=== PATIENT | female | born 1965 | race Caucasian/White ===

== ENCOUNTER → 2017-08-02 | Outpatient (CLI) | payer BC ==
--- NOTE | 2017-08-02 12:43 | REPMRS ---
Patient History The patient states she had a clinical breast exam in 02/02 Family history of breast cancer in paternal aunt under age 50, ovarian cancer in paternal aunt, and breast cancer in paternal cousin under age 50. Taking hormonal contraceptives for 18 years. Digital Woman Screen Mammo: August 02, 2017 - Exam #: [id number] Bilateral CC and MLO view(s) were taken. Technologist: Ayana Patel, Technologist Prior study comparison: July 23, 2016, digital woman screen mammo performed at [facility]. May 07, 2015, digital woman screen mammo performed at [facility]. FINDINGS: The breast tissue is heterogeneously dense. This may lower the sensitivity of mammography. There has been no change in the appearance of the mammogram from the prior studies. There is a moderate amount of residual fibroglandular tissue which is fairly symmetric. There is no interval development of dominant mass, areas of architectural distortion, or clustered microcalcification typical of malignancy. ASSESSMENT: BI-RADS/ACR category 1 mammogram. Negative. Recommendation Routine screening mammogram in 1 year (for women over age 40). This mammogram was interpreted with the aid of an FDA-approved computer-aided dectection system. Electronically Signed By: Gwyn Luis MD 08/02/17 [id number]
== END ==
LOC: M WHC 06:39
PROVIDERS: ATTEND Nurse Practitioner Family
DX: Z12.31 Encounter for screening mammogram for malignant neoplasm of breast (principal)

== ENCOUNTER 2018-07-17 06:32 | Day surgery (SDC) | payer BC, OTHER ==
[2018-07-17] MEDS ORDERED: LIDOCAINE 2% INJ 100 MG/5 ML SDV (FOR ANES.) As Ordered (06:58)
[2018-07-17] MEDS ORDERED: PROPOFOL 200 MG/20 ML VIAL As Ordered ×2 (07:00→08:00)
[2018-07-17] MEDS: NS 1,000 ML IV (07:10)
== END 2018-07-17 08:40 | disposition home or self-care (01) ==
LOC: M OPP 06:32
DX: Z12.11 Encounter for screening for malignant neoplasm of colon (principal); K64.8 Other hemorrhoids; I10 Essential (primary) hypertension; K21.9 Gastro-esophageal reflux disease without esophagitis; Z79.899 Other long term (current) drug therapy; Z80.3 Family history of malignant neoplasm of breast; Z80.0 Family history of malignant neoplasm of digestive organs; Z80.41 Family history of malignant neoplasm of ovary
CPT/HCPCS: G0121

== ENCOUNTER → 2020-04-02 | Outpatient (CLI) | payer BC ==
[~2020-04-02] MED LIST: DESO1TAB5 PO; FISH7.5C PO; LISI-542 PO
--- NOTE | 2020-04-02 16:11 | REP ---
BILATERAL MAMMOGRAM WITH 3D TOMOSYNTHESIS: Family history of breast cancer in paternal aunt and paternal cousin. [facility] lifetime risk of breast cancer 14.6%. Comparison mammogram 08/02/2017 as well as other prior exams. Breast parenchyma is moderately dense bilaterally limiting the sensitivity of the mammogram. There appears to be a 5 mm nodule in the upper outer quadrant of the left breast, in the mid third of the breast. I see no other evidence of mass or clustered microcalcifications. IMPRESSION: BIRADS 0: BI-RADS/ACR category 0 mammogram, Incomplete: Need additional imaging evaluation and/or prior mammograms for comparison. Suspect 5 mm nodule upper outer quadrant of the left breast. Recommend spot compression views and ultrasound to further evaluate. This mammogram was interpreted with the aid of an FDA-approved computer-aided detection system. A. Negative x-ray reports should not delay biopsy if a dominant or clinically suspicious mass is present. B. Four to eight percent of cancers are not identified by x-ray. C. Adenosis and dense breasts may obscure an underlying neoplasm. The patient states she/he had a clinical breast exam in March 2020. The patient letter being requested is M0.
== END ==
LOC: M WHC 11:01
PROVIDERS: ATTEND Nurse Practitioner Family
DX: Z12.31 Encounter for screening mammogram for malignant neoplasm of breast (principal)

== ENCOUNTER → 2020-05-21 | Outpatient (CLI) | payer BC ==
--- NOTE | 2020-06-17 14:24 | REP ---
DIAGNOSTIC MAMMOGRAM LEFT BREAST AND LEFT BREAST ULTRASOUND Multiple spot compression views of the left breast were performed and correlated with the prior mammogram of 04/02/2020. These confirm the presence of a 5-mm well-circumscribed nodule at the 3 o'clock position of the left breast. This was in the mid third of the breast. Real-time sonographic evaluation of the left breast performed in the region of 3 o'clock. There is a small simple oval cyst at the site of the mammographic abnormality. This is benign. It has a maximum diameter of 4 mm. IMPRESSION: ACR 2 benign. Spot compression views confirm the presence of a well- circumscribed nodule at the 3 o'clock position of the left breast with approximate diameter 4-5 mm. Sonographically this corresponds to a simple benign cyst measuring 4 mm in diameter. The findings are benign. Recommend follow-up mammogram in one year. Patient letter 1. MTDD
== END ==
LOC: M WHC 13:24
PROVIDERS: ATTEND Internal Medicine
DX: N60.02 Solitary cyst of left breast (principal); N63.25 Unspecified lump in the left breast, overlapping quadrants

== ENCOUNTER → 2021-03-16 | Outpatient (REF) | payer BC, OTHER ==
[~2021-03-16] MED LIST changes: -LISI-542 PO; +LISI-898 PO
[2021-03-16 14:10] LABS: FOLLICLE STIMULATING HORMONE 16.3 mIU/mL; LUTEINIZING HORMONE 1.2 mIU/mL
== END ==
LOC: M LAB REF 12:18
PROVIDERS: ATTEND Internal Medicine
DX: Z79.3 Long term (current) use of hormonal contraceptives (principal)

== ENCOUNTER → 2021-04-10 | Outpatient (REF) | LOC: M LABSMTC 09:43 | PROVIDERS: ATTEND Pediatrics | DX: Z20.828 Contact with and (suspected) exposure to other viral communicable diseases (principal); Z11.59 Encounter for screening for other viral diseases ==

== ENCOUNTER → 2021-07-01 | Outpatient (CLI) | payer BC, OTHER ==
--- NOTE | 2021-07-01 08:50 | REPMRS ---
Patient History The patient states she had a clinical breast exam in February 2021. Family history of breast cancer under age 50 in paternal aunt, breast cancer under age 50 in paternal cousin, ovarian cancer in paternal aunt. Taking hormonal contraceptives for 18 years. Tomosynthesis is performed. Volpara breast density is c. BakariNataliyamarcusdhruv lifetime risk of breast cancer 14.2%. No breast complaints today Patient signed the MRS sheet 1st vaccine 09/09/20-right arm-Pfizer 2nd vaccine 09/30/20-left arm 3rd vaccine 06/16/21-left arm Priors on PACS Patient Identification Verified Patient denied Digital Woman Screen Mammo: July 01, 2021 - Exam #: [id number] Bilateral CC and MLO view(s) were taken. Technologist: Latoya Kuhn, Technologist Prior study comparison: May 21, 2020, left breast diagnostic unilateral mammo performed at [facility]. April 02, 2020, bilateral digital woman screen mammo performed at [facility]. FINDINGS: The breast tissue is heterogeneously dense. This may lower the sensitivity of mammography. There is a fairly symmetric fibroglandular pattern in both breasts. There has been no interval development of masses, areas of architectural distortion or clusters of microcalcifications typical of malignancy.Subcentimeter cyst is again visualized in the upper outer quadrant of the left breast. No significant changes when compared with prior studies. Assessment: BI-RADS/ACR category 2 mammogram. Benign Findings. Recommendation Routine screening mammogram of both breasts in 1 year (for women over age 40). This mammogram was interpreted with the aid of an FDA-approved computer-aided dectection system. Electronically Signed By: Gwyn Luis MD 07/01/21 0849
== END ==
LOC: M WHC 07:29
PROVIDERS: ATTEND Internal Medicine
DX: Z12.31 Encounter for screening mammogram for malignant neoplasm of breast (principal); Z80.3 Family history of malignant neoplasm of breast

== ENCOUNTER → 2022-02-05 | Outpatient (REF) ==
[~2022-02-05] MED LIST changes: -LISI-898 PO; +LISI5TAB11 PO
== END ==
LOC: M LABSMTC 10:33
PROVIDERS: ATTEND Family Medicine
DX: Z20.822 Contact with and (suspected) exposure to COVID-19 (principal)

== ENCOUNTER → 2022-08-02 | Outpatient (CLI) | payer BC, OTHER ==
[~2022-08-02] MED LIST changes: +FISH10005 PO; -FISH7.5C PO
== END ==
LOC: M WHC 08:25
PROVIDERS: ATTEND Registered Nurse
DX: Z12.31 Encounter for screening mammogram for malignant neoplasm of breast (principal)

== ENCOUNTER → 2022-10-23 | Outpatient (REF) | LOC: M EMP 10:11 | PROVIDERS: ATTEND Family Medicine | DX: Z11.52 Encounter for screening for COVID-19 (principal) ==

== ENCOUNTER → 2023-02-11 | Outpatient (REF) | LOC: M EMP 09:16 | PROVIDERS: ATTEND Family Medicine | DX: Z20.822 Contact with and (suspected) exposure to COVID-19 (principal) ==

== ENCOUNTER → 2023-04-06 | Outpatient (REF) | payer BC, OTHER | LOC: M LAB REF 16:41 | PROVIDERS: ATTEND Internal Medicine | DX: M15.9 Polyosteoarthritis, unspecified (principal) ==

== ENCOUNTER → 2023-08-03 | Outpatient (CLI) | payer BC, OTHER | LOC: M WHC 07:02 | PROVIDERS: ATTEND Internal Medicine | DX: Z12.13 Encounter for screening for malignant neoplasm of small intestine (principal) ==

== ENCOUNTER → 2024-04-25 | Outpatient (CLI) | payer BC | LOC: M RAD 12:44 | PROVIDERS: ATTEND Internal Medicine | DX: R09.89 Other specified symptoms and signs involving the circulatory and respiratory systems (principal) ==

== ENCOUNTER → 2024-08-29 | Outpatient (CLI) | payer BC | LOC: M WHC 08:13 | PROVIDERS: ATTEND Internal Medicine | DX: Z12.31 Encounter for screening mammogram for malignant neoplasm of breast (principal) ==